=== PATIENT | female | born 1965 | race Caucasian/White ===

== ENCOUNTER 2022-11-07 07:34 | Outpatient (AMB) | payer BC, SELFPAY ==
[2022-11-07 07:36] VITALS: BP 122/76; PULSE 78; O2SAT 98; BMI 26.3
--- NOTE | 2022-11-07 07:36 | MHC.PC.OV ---
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 Patient moved from [place] where she lived for 20 years to be closer to her mother suffering from dementia. 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 1. Little interest or pleasure in doing things: not at all 2. Feeling down, depressed, or hopeless: not at all 3. Trouble falling or staying asleep, or sleeping too much: not at all 4. Feeling tired or having little energy: not at all 5. Poor appetite or overeating: not at all 6. Feeling bad about yourself - or that you are a failure or have let yourself or your family down: not at all 7. Trouble concentrating on things, such as reading the newspaper or watching television: not at all 8. Moving or speaking so slowly that other people could have noticed. Or the opposite - being so fidgety or restless that you have been moving around a lot more than usual: not at all 9. Thoughts that you would be better off or of hurting yourself in some way: not at all Total score: 0 Depression Screening Interpretation: Negative Source: Developed by Drs. Bebo Matos, Aylin Andrade, Freddy Ovalle and colleagues, with an educational rex from [employer]. Thrive Questionnaire Date Thrive assessed: 11/07/22 I am a: Patient What is your living situation today?: I have a steady place to live Within the past 12 months, did the food you bought not last and you didn't have the money to get more?: Never true Within the past 12 months, did you worry whether your food would run out before you got money to buy more?: Never true Do you have trouble paying for medicines?: No Do you have trouble getting transportation to medical appointments?: No Do you have trouble paying your heating and electricity bill?: No Do you have trouble taking care of your child, family member or friend?: No Do you have trouble with day-to-day activities such as bathing, preparing meals, shopping, managing finances, etc.?: No Are you currently unemployed and looking for a job?: No Are you interested in more education?: No Please select the resources that you would like help with: None Currently or been in a relationship where the following occur: no concerns reported AUDIT C Alcohol Use Questionnaire (AUDIT-C) 1. How often do you have a drink containing alcohol?: Never 3. How often do you have six or more drinks on one occasion?: Never Total Score: 0 LILLIAM-7 AMB Questionnaire LILLIAM-7 Date LILLIAM - 7 assessed: 11/07/22 Feeling nervous, anxious, or on edge: 0 = Not at all Not being able to stop or control worryin = Not at all Worrying too much about different things: 0 = Not at all Trouble relaxin = Not at all Being so restless that it is hard to sit still: 0 = Not at all Becoming easily annoyed or irritable: 0 = Not at all Feeling afraid as if something awful might happen: 0 = Not at all Total LILLIAM-7 score (0-4 normal; 5-9 mild; 10-14 moderate; 15-21 severe): 0 Source: Developed by Drs. Bebo Matos, Aylin Andrade, Freddy Ovalle and colleagues, with an educational rex from [employer]. Review of Systems Const All systems reviewed & are unremarkable except as noted in HPI and below Reports no additional complaints Eyes Reports no additional complaints ENT Reports no additional complaints Card Reports no additional complaints Resp Reports no additional complaints GI Reports no additional complaints Reports no additional complaints Physical exam (Primary Care) Vital Signs: Last Vital Signs Pulse 78 11/07/22 07:36 BP 122/76 11/07/22 07:36 Pulse Ox 98 11/07/22 07:36 Oxygen Delivery Method Room Air 11/07/22 07:36 BMI result Body Mass Index 26.3 Tobacco/Smoking Status: Tobacco use Status Tobacco use date assessed 11/07/22 11/07/22 07:44 Patient Tobacco Use Status Former Tobacco user (11/07/22 07:44 years ago) e-Cigarette/Vaping Use Never Used 11/07/22 07:44 Depression Screening Interpretation: Negative Currently or been in a relationship where the following occur: no concerns reported Const General: no acute distress HENMT Head: Yes normal to inspection Ears: hearing grossly normal bilaterally Face and sinus: Yes normal facial exam Mouth: Normal oral and palatal mucosa present Eyes General: appearance normal, both eyes and all related structures Neck Neck: Yes no lymphadenopathy and Yes supple Resp Effort & Inspection: normal respiratory effort Auscultation: clear to auscultation bilaterally Cardio Rhythm: regular rhythm Heart sounds: S1 normal heart sound present and S2 normal heart sound present GI Inspection: Yes normal to inspection Palpation (GI): Soft to palpation Percussion: Yes normal to percussion Auscultation: normal bowel sounds Assessment and Plan Assessment & Plan (1) Ovarian cyst: Comment: History of ovarian cysts Code(s): N83.209 - Unspecified ovarian cyst, unspecified side Plan: Patient will be referred to word processor for pelvic exam and follow-up on ovarian cysts (2) Annual physical exam: Code(s): Z00.00 - Encounter for general adult medical examination without abnormal findings Plan: Well-balanced diet regular exercise discussed with the patient. She will return for fasting blood work. Screening mammogram will be ordered. Patient will be referred to orthopedic brace maker for colonoscopy (3) Breast implant in situ: Comment: surjit 2002, Code(s): Z98.82 - Breast implant status Plan: Check mammogram Orders: Orders MM tomosynthesis screen imp BI Today Z12.31 - Encounter for screening mammogram for malignant neoplasm of breast Comprehensive [place]. Panel Fast Today Z00.00 - Encounter for general adult medical examination without abnormal findings Lipid Panel Today Z00.00 - Encounter for general adult medical examination without abnormal findings TSH reflex Free T4 Today Z00.00 - Encounter for general adult medical examination without abnormal findings Vitamin D 25-OH Total Today Z00.00 - Encounter for general adult medical examination without abnormal findings Complete Blood Count Auto Diff Today Z00.00 - Encounter for general adult medical examination without abnormal findings UA w Microscopic Today Z00.00 - Encounter for general adult medical examination without abnormal findings Referrals Gastroenterology Referral Z00.00 - Encounter for general adult medical examination without abnormal findings Medications: New gdthpgetlv-fup-krscb-menth-euc 8 % apply to affected toenails topically QD; 34.6 mL 1RF Coding Level of Care Code New Pt Prev Care 40-64y(88009) Diagnoses Ovarian cyst N83.209 Annual physical exam Z00.00 Breast implant in situ Z98.82
== END 2022-11-07 08:33 | disposition home or self-care (01) ==
PROVIDERS: Visit Provider Internal Medicine
DX: Z00.00 Encounter for general adult medical examination without abnormal findings (principal); Z98.82 Breast implant status
CPT/HCPCS: 99386

== ENCOUNTER 2022-11-22 09:23 | Outpatient (REF) | payer BC, SELFPAY ==
[2022-11-22 11:16] LABS: Appearance Urine Clear; Color Urine Yellow; Glucose Urine UA Negative (Negative); Leukocyte Esterase Urine Small (1+) (Negative); MANUAL DIFF FLAG NO; Nitrite Urine Negative (Negative); PH 5.5 (5.0-9.0); UMIC TRIGGER UA YES; Urine Blood Negative (Negative); Urine Ketones Negative (Negative); Urine Protein Negative (Neg-Trace)
[2022-11-22 11:19] LABS: Bacteria Urine 1+ (None Seen); Hyaline Casts Urine 0-2 /LPF (0-2); RBC Urine 0-2 /HPF (0-2)
[2022-11-22 11:35] LABS: Basophils Percent Auto 0.7 % (0-2); Eosinophils Absolute Auto 0.1 X10*3/uL (0.0-0.4); Eosinophils Percent Auto 2.6 % (0-4); Hemoglobin 13.8 g/dl (12.0-16.0); Imm Gran Abs Auto 0.01 X10*3/uL (0.00-0.03); Imm Gran Pct Auto 0.2 % (0.0-0.4); Lymphocytes Absolute Auto 1.2 X10*3/uL (1.2-4.9); Lymphocytes Percent Auto 28.8 % (20-40); Mean Corpuscular HGB Conc 32.9 g/dl (31.0-35.0); Mean Corpuscular Hemoglobin 28.5 pg (27.0-33.0); Mean Corpuscular Volume 86.6 fL (80.0-98.0); Mean Platelet Volume 10.6 fL (9.4-12.3); Monocytes Absolute Auto 0.4 X10*3/uL (0.1-1.2); Monocytes Percent Auto 8.8 % (2-11); Neutrophils Absolute Auto 2.5 x10*3/uL (2.0-8.3); Neutrophils Percent Auto 58.9 % (45-73); Platelet Count 263 X10*3/uL (160-400); Red Blood Count 4.85 X10*6/uL (4.20-5.50); Red Cell Distribution Width 13.2 % (11.0-16.0); White Blood Count 4.3 X10*3/uL (4.8-10.8)
[2022-11-22 12:11] LABS: Alanine Aminotransferase 14 U/L (0-31); Alkaline Phosphatase 77 U/L (39-117); Anion Gap 11 (12-20); Aspartate Amino Transferase 16 U/L (5-31); Bilirubin Total 0.9 mg/dL (0.0-1.0); Blood Urea Nitrogen 17 mg/dL (9-16); Calcium 9.3 mg/dL (8.4-10.2); Carbon Dioxide 25 mmol/L (22-29); Chloride 109 mmol/L (96-108); Cholesterol 240 mg/dL; Estimated Glomerular Filt Rate > 60; Glucose Fasting 89 mg/dL (60-99); HDL Cholesterol 65 mg/dL; LDL Cholesterol Calculated 162 mg/dl; Potassium 3.9 mmol/L (3.3-5.1); Sodium 141 mmol/L (135-145); Total Protein 7.2 g/dL (6.5-8.0); Triglycerides 69 mg/dL
[2022-11-22 12:30] LABS: TSH reflex Free T4 0.99 uIU/mL (0.32-4.0); Vitamin D 25-OH Total 48.8 ng/mL (>30)
== END 2022-11-22 09:24 | disposition home or self-care (01) ==
LOC: HO.HMGCLDS 09:23
PROVIDERS: PCP Internal Medicine; Visit Provider Internal Medicine
DX: Z00.00 Encounter for general adult medical examination without abnormal findings (principal); Z20.2 Contact with and (suspected) exposure to infections with a predominantly sexual mode of transmission
CPT/HCPCS: 36415; 80053; 80061; 81001; 82306; 84443; 85025

== ENCOUNTER 2022-11-25 10:14 | Outpatient (REF) | payer BC, SELFPAY ==
[2022-11-25 13:39] LABS: Appearance Urine Clear; Color Urine Yellow; Glucose Urine UA Negative (Negative); Leukocyte Esterase Urine Trace (Negative); Nitrite Urine Negative (Negative); Specific Gravity - Urine 1.015 (1.005-1.025); UMIC TRIGGER UA YES; Urine Blood Negative (Negative); Urine Ketones Negative (Negative); Urine Protein Negative (Neg-Trace)
[2022-11-25 13:42] LABS: Bacteria Urine None Seen (None Seen); Hyaline Casts Urine 0-2 /LPF (0-2); RBC Urine 0-2 /HPF (0-2); WBC Urine 0-5 /HPF (0-5)
== END 2022-11-25 10:15 | disposition home or self-care (01) ==
LOC: HO.HMGCLDS 10:14
PROVIDERS: PCP Internal Medicine; Visit Provider Internal Medicine
DX: R30.0 Dysuria (principal)
CPT/HCPCS: 81001; 87086

== ENCOUNTER 2022-12-08 12:00 | Outpatient (REF) | payer BC, SELFPAY ==
--- NOTE | ~2022-12-08 | MM_ITS ---
EXAMINATION: MM SCREENING DIGITAL BREAST TOMOSYNTHESIS, BILATERAL CLINICAL INFORMATION: Screening. Asymptomatic. COMPARISON: Mammography: This is a baseline study. TECHNIQUE: Digital mammography is performed in craniocaudal and mediolateral oblique views along with computer-aided detection (CAD). Digital breast tomosynthesis is performed in implant-displaced craniocaudal and implant-displaced mediolateral oblique views along with computer-aided detection (CAD). Synthesized 2D images are generated from the tomosynthesis. FINDINGS: There are scattered areas of fibroglandular density (ACR BI-RADS breast composition Category b). There are no significant masses, abnormal calcifications, or other abnormalities. MM/MM tomosynthesis screen imp BI IMPRESSION: There are no significant changes from prior study. ASSESSMENT: BI-RADS BI-RADS 1 - Negative RECOMMENDATION: Routine annual mammography screening. 1 year F/U This patient's information was entered into a reminder system with a target due date for their next mammogram.
== END 2022-12-08 12:01 | disposition home or self-care (01) ==
LOC: HO.MAMMO 12:00
PROVIDERS: PCP Internal Medicine; Visit Provider Internal Medicine
DX: Z12.31 Encounter for screening mammogram for malignant neoplasm of breast (principal)
CPT/HCPCS: 77063; 77067

== ENCOUNTER → 2022-12-08 12:02 | Outpatient (BNV) | payer BC, SELFPAY | PROVIDERS: PCP Internal Medicine; Visit Provider Radiology Diagnostic Radiology | DX: Z12.31 Encounter for screening mammogram for malignant neoplasm of breast (principal) | CPT/HCPCS: 77063; 77067 ==

== ENCOUNTER 2023-01-19 09:13 | Outpatient (AMB) | payer BC, SELFPAY ==
--- NOTE | 2023-01-19 09:16 | MHC.OFFVIS ---
Intake Vital Signs 01/19/23 09:18 Height 5 ft 2 in Weight 140 lb BMI 25.6 BP 149/90 H Blood Pressure Location Lt brachial Position Sitting Pulse 71 Intake Visit Reasons: [place] screening Intake Note: Patient new consult for Pre Colonoscopy screening. Patient cc: RLQ pain, and denies any other GI issues. 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 She is referred by Brittny Roach of [facility] primary care. PMX Asthma High cholesterol History of ovarian cyst Pelvic pain Line lower back pain * SURGICAL HISTORY Saline breast implant * ALLERGIES: NKDA * Green Phosph[employer] LABS: Laboratory Tests 11/22/22 09:28 WBC 4.3 L Hgb 13.8 Hct 42.0 Plt Count 263 Estimated GFR > 60 Total Bilirubin 0.9 AST 16 ALT 14 Alkaline Phosphata se 77 TSH 0.99 TODAY'S VISIT This is her first colonoscopy. She has occasional CIC controlled with am coffee. No upper GI problems. She has trouble coming out of anesthesia in the past I want to fight. She denies any cardiac or respiratory problems. NO Id problems. Her brother at age 52 of CRC. 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 Patient Tobacco Use Status: Former Tobacco user (20 years ago) e-Cigarette/Vaping Use: Never Used Current occupational status: employed Cognitive needs: No Hearing needs: No Vision needs: Yes Review of Systems Const Denies fatigue, Denies fever(s), Denies night sweats, Denies poor appetite and Denies weight loss ENT Reports Normal hearing present, Denies dental pain, Denies dysphagia, Denies hearing loss, Denies mouth pain, Denies odynophagia, Denies throat swelling, Denies tongue swelling and Reports other (Dentition adequate) Card Reports no additional complaints Resp Reports no additional complaints GI Denies abdominal pain, Denies melena, Denies bloating, Denies hematochezia, Reports constipation, Denies GI cramping, Denies dysphagia, Denies excessive flatus, Denies early satiety, Denies heartburn, Denies diarrhea, Denies nausea, Denies odynophagia, Denies vomiting and Denies hematemesis Skin/Breast Denies pruritus, Denies lesions, Denies rash and Denies jaundice Neuro Reports Normal hearing present and Denies Abnormal speech present Endo Denies fatigue Aller/Immun Denies throat swelling and Denies tongue swelling Physical Exam Vital Signs: Last Vital Signs Pulse 71 01/19/23 09:18 BP 149/90 H 01/19/23 09:18 BMI result Body Mass Index 25.6 Const General: cooperative, no acute distress, well developed and well groomed Nutritional Appearance: well nourished and overweight Orientation/consciousness: oriented to person, oriented to place and oriented to time Limitations: No language barrier HEENT Head: Yes normocephalic and Yes atraumatic Eyes General: appearance normal, both eyes and all related structures Pupils: Equal, round and reactive pupils present Neck Neck: Yes normal visual inspection and Yes no lymphadenopathy Thyroid: Thyroid normal Resp Effort & Inspection: normal respiratory effort and able to speak in complete sentences Auscultation: clear to auscultation bilaterally Cardio Rate: regular rate Rhythm: regular rhythm Heart sounds: Normal, physiologic split S2 sound present Peripheral pulses: radial pulses present and posterior tibial pulses present GI Inspection: No distended, No Abdominal panniculus present and Yes obesity Palpation (GI): Soft to palpation, nontender, no guarding, not rigid and No hepatosplenomegaly present Percussion: Yes normal to percussion Auscultation: normal bowel sounds Rectal Exam - Female: deferred Skin General skin exam: no rashes or lesions noted, turgor normal, skin not dry, no jaundice, No spider nevi and no striae Rashes: no rashes Nails: normal Neuro General: oriented to person, oriented to place and oriented to time Cranial nerves: Yes Equal, round and reactive pupils present and Yes Normal hearing present Speech: No Abnormal speech present Extrem General: Yes normal to inspection, No clubbing, No cyanosis and No edema Psych Appearance: grossly normal and well kempt Mental Status: mental status grossly normal Speech and movement: Normal speech and movement present Affect: normal affect Attitude: cooperative Thought process: Normal thought process present and not confabulating Thought content: Normal thought content present Insight: Fair insight present (Psych) Judgement: Fair judgement present (Psych) Assessment & Plan Assessment & Plan (1) Family history of colon cancer: Comment: Brother age 52 Code(s): Z80.0 - Family history of malignant neoplasm of digestive organs Plan: This is her first colonoscopy. She has occasional CIC controlled with am coffee. No upper GI problems. She has trouble coming out of anesthesia in the past I want to fight. She denies any cardiac or respiratory problems. NO Id problems. Her brother at age 52 of CRC. (2) Pre-op examination: Code(s): Z01.818 - Encounter for other preprocedural examination Coding Level of Care Code New Pt Level 3 (16854) Diagnoses Family history of colon cancer Z80.0 Pre-op examination Z01.818
[2023-01-19 09:18] VITALS: BP 149/90; PULSE 71; BMI 25.6
== END 2023-01-19 09:52 | disposition home or self-care (01) ==
PROVIDERS: PCP Internal Medicine; Visit Provider Nurse Practitioner
DX: Z80.0 Family history of malignant neoplasm of digestive organs (principal); Z01.818 Encounter for other preprocedural examination
CPT/HCPCS: 99203

== ENCOUNTER → 2023-01-19 09:13 | Outpatient (BNVA) | payer BC, SELFPAY | PROVIDERS: PCP Internal Medicine; Visit Provider Nurse Practitioner ==

== ENCOUNTER 2023-01-26 12:51 | Outpatient (REF) | payer BC, SELFPAY ==
--- NOTE | ~2023-01-26 | US_ITS ---
EXAMINATION: US PELVIS CLINICAL INFORMATION: Pelvic and perineal pain. The patient reports LMP 5+ years ago. COMPARISON: None available. TECHNIQUE: Ultrasound of the pelvis is performed using both transabdominal and transvaginal transducers along with Doppler. Transvaginal imaging is performed due to inadequate visualization transabdominally. FINDINGS: Uterus: The uterus is anteverted and measures 7.1 x 1.7 x 3.0 cm. The double wall endometrial thickness is 6 mm. The uterus is smooth in contour and has normal myometrial echogenicity. No visible fibroid. Adnexa: The right ovary is enlarged measuring 8.6 x 6.9 x 7.1 cm, volume 220 mL. Cyst in the right ovary measures 8.4 x 6.5 x 6.8 cm. The cyst appears simple on the transvaginal imaging. The left ovary measures 3.3 x 1.5 x 2.4 cm, volume 6 mL. The left ovary appears normal. US/US pelvic and transvaginal IMPRESSION: 8.4 cm cyst in the right ovary. In a postmenopausal patient this is concerning for low-grade cystic neoplasm. Recommend either gynecology consult and follow-up US in 3-6 months, or MR with IV contrast for improved characterization.
== END 2023-01-26 12:52 | disposition home or self-care (01) ==
LOC: HO.HMGCX 12:51
PROVIDERS: PCP Internal Medicine; Visit Provider Internal Medicine
DX: R10.2 Pelvic and perineal pain (principal); N83.209 Unspecified ovarian cyst, unspecified side
CPT/HCPCS: 76830; 76856

== ENCOUNTER 2023-04-17 10:54 | Day surgery (SDC) | payer OTHER, SELFPAY ==
[2023-04-12 16:18] VITALS: BMI 25.6
[2023-04-12 16:40] VITALS: BMI 25.6
--- NOTE | 2023-04-16 10:34 | HO.ANESPROP2 ---
Documented by User: Dora Dukes NP 04/16/23 10:35 HPI - Anesthesia Eval Consult details Narrative: 58yo F for Colonoscopy PMFSH Active Problems Active Problems: All Active Problems (Updated 04/12/23 @ 15:51 by Tressa Sumner, SHAKIRA) Pre-op examination (Acute) Family history of colon cancer (Acute) Pelvic pain (Acute) Hyperlipidemia (Acute) Dysuria (Acute) Lower back pain (Acute) Breast implant in situ (Acute) Annual physical exam (Acute) Ovarian cyst (Acute) UTI (urinary tract infection) (Acute) Past Medical History Medical History Pelvic pain Lower back pain Hx of ovarian cyst High cholesterol Asthma Family History Family History Mother Dementia Mental health disorder Brother Colon cancer Substance use disorder Father Hypertension Brother Substance use disorder Surgical History Surgical History Hx of exploratory laparotomy Hx of bilateral breast implants Hx of hand surgery Social History Social History Household Members 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 If so, by whom?: No Are you DNR?: No Advance Directives: No Advance Directives Information Provided: Yes Advance Directives on File: No Recently lost weight without trying: No Nutrition Risks: No Nutritional Risk Current occupational status: employed Cognitive needs: No Hearing needs: No Vision needs: Yes Meds Allergies Allergy/AdvReac Type Severity Reaction Status Date / Time latex Allergy Rash Verified 04/17/23 11:06 Home Medications Medication Instructions Recorded Confirmed Last Taken Type albuterol sulfate 90 mcg/actuation inhalation 04/12/23 04/12/23 03/27/23 History aerosol inhaler Exam Height,Weight and Vital Signs: Height 5 ft 2 in Weight 63.503 kg Pertinent Lab Results Pertinent Lab Results: Laboratory Tests 11/22/22 09:28 WBC 4.3 L Hgb 13.8 Hct 42.0 Plt Count 263 Sodium 141 Potassium 3.9 Chloride 109 H Carbon Dioxide 25 BUN 17 H Creatinine 0.74 Assessment and Plan Assessment Anesthesia Assessment: Chart Reviewed Documented by User: Eric Parker MD 04/17/23 12:56 PMFSH Past Medical History Medical History Pelvic pain Lower back pain Hx of ovarian cyst High cholesterol Asthma Family History Family History Mother Dementia Mental health disorder Brother Colon cancer Substance use disorder Father Hypertension Brother Substance use disorder Family history of problems with anesthesia: No Surgical History Surgical History Hx of exploratory laparotomy Hx of bilateral breast implants Hx of hand surgery History of Problems with Anesthesia: No Social History Social History Household Members 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 If so, by whom?: No Are you DNR?: No Advance Directives: No Advance Directives Information Provided: Yes Advance Directives on File: No Recently lost weight without trying: No Nutrition Risks: No Nutritional Risk Current occupational status: employed Cognitive needs: No Hearing needs: No Vision needs: Yes Meds Allergies Allergy/AdvReac Type Severity Reaction Status Date / Time latex Allergy Rash Verified 04/17/23 11:06 Home Medications Medication Instructions Recorded Confirmed Last Taken Type albuterol sulfate 90 mcg/actuation inhalation 04/12/23 04/12/23 03/27/23 History aerosol inhaler Exam Airway Mallampati Class: I TM Dist: >3cm Neck ROM: Full Loose/Missing/Broken Teeth: Yes (top front) Assessment and Plan Assessment Anesthesia Assessment: Anesthesia Plan Discussed Final Anesthetic Review Family History of Problems with Anesthesia: No History of Problems with Anesthesia: No NPO: Yes ASA Class: II Final Preanesthetic Review: No Changes in Pt Med Stat, Meds/Allgs Chart Reviewed, Consent Obtained/Reviewed and Anes Risks/Benef Reviewed Patient Risk: Low Procedure Risk: Low Anesthetic Plan Anesthetic Plan: MAC: Disposition: Standard PACU
[2023-04-17 11:20] VITALS: BP 116/82; PULSE 82; RESP 16; TEMP 36.4; O2SAT 98
--- NOTE | 2023-04-17 11:22 | MHC.SHP ---
Pre-Procedural Eval Section A Date of Service: 04/17/23 The patient is an INPATIENT: No The History & Physical has been completed within 30 days and I have reviewed it.: No Section B Chief Complaint: Screening, family history of colon cancer Relevant Family History (Specify if Yes): Yes Relevant Social History: Tobacco Use (Former smoker) Present Medications: see Short Stay Collaborative assessment Medical History: Significant History (Hyperlipidemia, asthma, ovarian cyst) History of Previous Operations: Relevant previous surgery/procedure and date(s) (Hx of hand surgery) Allergies: Allergies Allergy/AdvReac Type Severity Reaction Status Date / Time latex Allergy Rash Verified 04/17/23 11:06 Review of Systems Sugical H&P ROS: Negative: Constitution, Cardiovascular, Respiratory and Gastrointestinal Exam Surgical H&P Exam: Normal: Heart, Normal: Lungs, Normal: Extremities and Normal: Abdomen Plan Diagnosis/Plan: Unchanged I have reviewed the history and physical and performed a pertinent physical examination on my patient. No changes have occurred unless specified. Time Spent With Patient Time: Total time managing care of this patient today ____ minutes.
[2023-04-17] MEDS: Lactated Ringers 1,000 ML 100 ML IVCONT (11:23)
--- NOTE | 2023-04-17 12:36 | W.PM.OPN ---
Operative Note Operative Note Date of Service: 04/17/23 Narrative: COLONOSCOPY TILL CECUM Pre-op diagnosis: Colon cancer screening, family history of colon polyps (brother at age 52 yrs) Post-op diagnosis:? Diverticulosis, hemorrhoids Endoscopist:? Cayden Loza MD Anesthesia:?MAC Consent: Indications for the procedure and potential complications of bleeding, perforation, reaction to medications and missed diagnosis were discussed with the patient and informed consent was obtained. Instrument: Olympus PCF H 190 L variable stiffness pediatric colonoscope Monitoring: Vital signs and clinical assessment, intermittent blood pressure monitoring, continuous EKG monitoring, Pulse oximetry and Carbon Dioxide monitoring were done throughout the procedure. Please see anesthesia flowsheet. Colon withdrawl time was 13 minutes. Procedure: The patient was placed in the left lateral decubitis position and pre-procedure medications were administered. After a digital rectal examination of the ano-rectum, the video colonoscope was inserted into the rectum and advanced through the colon to the cecum. The colonoscope was slowly withdrawn in a retrograde panoramic fashion and the colon mucosa was carefully examined including a retroflexed view of the rectum. Findings and interventions are described below. Procedure Difficulty: Severe diverticulosis with narrowing in the sigmoid colon at 30 cms which was navigated with some difficulty Findings: Terminal Ileum: Not evaluated Cecum: Normal Ascending Colon: Normal Transverse Colon: Normal Descending Colon: Moderate diverticulosis Sigmoid Colon: Severe diverticulosis with luminal narrowing Rectum: Normal Ano-rectum: Moderate internal hemorrhoids Colon preparation: Excellent Impression and Post Procedure Diagnosis: Colonoscopy Findings: No polyps were detected Moderate to severe diverticulosis seen in the left colon Moderate hemorrhoids on retroflexed exam. Plan: Patient has an appointment on 05/01/23 in the GI [facility] with Sasha Mari NP . Repeat Colonoscopy in 5 years due to positive family history. Above findings were reviewed with the patient and diverticulosis handouts was given in the discharge area
[2023-04-17 13:17] VITALS: BP 84/48; PULSE 81; RESP 12; TEMP 36.3; O2SAT 95
[2023-04-17 13:32] VITALS: BP 108/76; PULSE 79; RESP 16; O2SAT 95
[2023-04-17 13:44] VITALS: BP 104/74; PULSE 80; RESP 16; TEMP 36.3; O2SAT 96
== END 2023-04-17 14:25 | disposition home or self-care (01) ==
PROVIDERS: PCP Internal Medicine; Visit Provider Internal Medicine Gastroenterology
PROC: 0DJD8ZZ Inspection of Lower Intestinal Tract, Via Natural or Artificial Opening Endoscopic (ICD-10-PCS; CPT 45378; principal; 2023-04-17 12:00)
DX: Z12.11 Encounter for screening for malignant neoplasm of colon (principal); Z80.0 Family history of malignant neoplasm of digestive organs; K57.30 Diverticulosis of large intestine without perforation or abscess without bleeding; K64.8 Other hemorrhoids; E78.00 Pure hypercholesterolemia, unspecified; J45.909 Unspecified asthma, uncomplicated; M54.50 Low back pain, unspecified; Z79.899 Other long term (current) drug therapy; Z91.040 Latex allergy status; Z98.890 Other specified postprocedural states; Z87.891 Personal history of nicotine dependence
CPT/HCPCS: 45378; J2704; J3010

== ENCOUNTER → 2023-04-17 10:54 | Outpatient (BNV) | payer OTHER, SELFPAY | PROVIDERS: PCP Internal Medicine; Visit Provider Internal Medicine Gastroenterology | DX: Z12.11 Encounter for screening for malignant neoplasm of colon (principal); Z80.0 Family history of malignant neoplasm of digestive organs; K57.30 Diverticulosis of large intestine without perforation or abscess without bleeding; K64.8 Other hemorrhoids | CPT/HCPCS: 45378 ==

== ENCOUNTER 2023-04-27 14:07 | Outpatient (AMB) | payer OTHER, SELFPAY ==
--- NOTE | 2023-04-27 14:32 | AM.OFFWIN_ITS ---
Intake Vital Signs 04/27/23 14:35 Height 5 ft 2 in Weight 150 lb BMI 27.4 BP 122/72 Blood Pressure Location Lt brachial Position Sitting Pulse 80 Pulse Source Pulse Oximeter Temp 98.0 F Temp Source Temporal Artery Scan Pulse Oximetry (%) 98 Oxygen Delivery Method Room Air Intake Visit Reasons: EP sinus infection masked in lobby Intake Note: pt is here today for sinus infection started 2 weeks ago Patient Tobacco Use Status: Former Tobacco user Quit Date: Allergies latex Allergy (Verified 04/27/23 14:33) Rash Do you need a note to return to daycare/school/sports/work: Yes HPI HPI Comments History of Present Illness Details Pt is a 58yo F who presents with concern sinus infection Ongoing x 2 eeks Facial pressure, congestion, post nasal drip No fever or chills Slight cough without CP or SOB Denies dizziness or lightheadedness + slight ear fullness without pain No ST Only taking hydration. 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 Are you a primary group care worker to a significant other at home: Yes (grandmother) Do you presently have visiting nurse or other home services: No Patient Tobacco Use Status: Former Tobacco user Quit Date: Tobacco use type: Cigarette e-Cigarette/Vaping Use: Never Used Current occupational status: employed Cognitive needs: No Hearing needs: No Vision needs: Yes Review of Systems Const Denies body aches, Denies chills, Denies fatigue, Denies fever(s) and Reports headache(s) (sinus) Eyes Denies blind spots and Denies blurry vision ENT Denies dizziness, Denies otalgia, Reports headache(s) (sinus), Reports nasal congestion, Reports sinus pain, Reports sinus pressure and Denies sore throat Card Denies chest pain and Denies dyspnea Resp Denies chest congestion, Reports cough and Denies dyspnea Musc Denies myalgias Neuro Denies dizziness and Reports headache(s) (sinus) Endo Denies fatigue Physical Exam Vital Signs: Last Vital Signs Temp 98.0 F 04/27/23 14:35 Pulse 80 04/27/23 14:35 BP 122/72 04/27/23 14:35 Pulse Ox 98 04/27/23 14:35 Oxygen Delivery Method Room Air 04/27/23 14:35 BMI result Body Mass Index 27.4 General: Non-toxic, NAD. Speaking full sentences. Skin: Warm dry throughout Eye: EOMI HENT: Airway patent. Uvula midline. No pharyngeal erythema or edema. 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 Bilateral canals clear. + fluid behind R TM. L TM erythematous without bulging. No TM perforation or hemotympanum noted. + sinus tenderness to palpation bilaterally frontal and maxillary Respiratory: CTA bilaterally. No wheezes, rales or rhonchi Cardiac: RRR. No murmur MSK: Full ROM extremities. Neurology: A/O. No aphasia or facial droop. Gait without abnormality Psych: Good mood and affect Assessment & Plan Assessment & Plan (1) Sinusitis: Code(s): J32.9 - Chronic sinusitis, unspecified Qualifiers: Sinusitis location: frontal Chronicity: acute Recurrence: non- recurrent Qualified Code(s): J01.10 - Acute frontal sinusitis, unspecified Plan: Patient seen and evaluated. No OM or OE on exam Lungs CTA Augmentin with food; avoid alcohol F/U with PCP ER protocol discussed like CP, SOB or dizziness Patient gave verbal understanding and had no additional questions or concerns at time of discharge All questions answered Medications: New amoxicillin-pot clavulanate 875-125 mg 1 tab PO BID 14 tabs 0RF J32.9 - Chronic sinusitis, unspecified Coding Level of Care Code Est Pt Level 3 (77062) Diagnoses Acute non-recurrent frontal sinusitis J01.10 Sinusitis location: frontal Chronicity: acute Recurrence: non-recurrent
[2023-04-27 14:35] VITALS: BP 122/72; PULSE 80; TEMP 36.7; O2SAT 98; BMI 27.4
== END 2023-04-27 15:37 | disposition home or self-care (01) ==
PROVIDERS: PCP Internal Medicine; Visit Provider Physician Assistant
DX: J01.10 Acute frontal sinusitis, unspecified (principal)
CPT/HCPCS: 99213

== ENCOUNTER 2023-05-25 11:33 | Outpatient (AMB) | payer OTHER, SELFPAY ==
--- NOTE | 2023-05-25 11:35 | MHC.OFFVIS ---
Intake Vital Signs 05/25/23 11:36 Height 5 ft 2 in Weight 143 lb 4.807 oz BMI 26.2 BP 139/76 Blood Pressure Location Lt brachial Position Sitting Pulse 87 Intake Visit Reasons: S/P Colon Intake Note: Marysol presents in the office as a follow up colonoscopy. CC: She states that she is just here for results. Her digestive system has finally gone back to normal. She was still having diarrhea for a month after her procedure. Allergies latex Allergy (Verified 05/25/23 11:37) Rash HPI S/P Colon HPI Details Assessment & Plan (1) Family history of colon cancer: Comment: Brother age 52 Code(s): Z80.0 - Family history of malignant neoplasm of digestive organs Plan: This is her first colonoscopy. She has occasional CIC controlled with am coffee. No upper GI problems. She has trouble coming out of anesthesia in the past I want to fight. She denies any cardiac or respiratory problems. NO Id problems. Her brother at age 52 of CRC. (2) Pre-op examination: Code(s): Z01.818 - Encounter for other preprocedural examination COLONOSCOPY 04/17/23 Findings: Terminal Ileum: Not evaluated Cecum: Normal Ascending Colon: Normal Transverse Colon: Normal Descending Colon: Moderate diverticulosis Sigmoid Colon: Severe diverticulosis with luminal narrowing Rectum: Normal Ano-rectum: Moderate internal hemorrhoids Colon preparation: Excellent Impression and Post Procedure Diagnosis: Colonoscopy Findings: No polyps were detected Moderate to severe diverticulosis seen in the left colon Moderate hemorrhoids on retroflexed exam. Plan: Patient has an appointment on 05/01/23 in the [facility] with Sasha Mari NP . Repeat Colonoscopy in 5 years due to positive family history. TODAY'S VISIT She is agreeable to 5 year repeat. The procedure was well tolerated. The results were explained and the patient is agreeable to the follow-up interval as stated. Education was provided to tell any 1st degree relatives about their findings to be sure that they are screened by age 45. Educated that they will be put on a recall list when it is time for their repeat scope but should they move out of state or away from the hospital they will need to remember along with their primary to repeat the procedure in a timely fashion to avoid any adverse complications. She says of the whole experience was terrible. The anesthesia burned her arm when it was injected, I wanted to scream. She developed severe diarrhea right after the procedure which persisted for a month. She called the office, but the message went to Dr. Loza and she was only given Imodium, which bloated her. She also developed dizziness and had a sinus infection that required abx. She and I today discuss probioitics and fiber. She mentions that she gets pain in the right lower quadrant when she eats ice cream. This tends to happen at night. We discuss possible lactose intolerance. She is agreeable to trying frozen yogurt and or using [id number] Lactaid tablets. I offer her follow-up visits with me to be sure her bowels continue to be normal but she feels that now that she is increased the fiber in her diet this has normalized her bowels and resolved her constipation without having to drink coffee mornings. I tell her to please feel free to contact me if she needs my services in the future and I will work to make sure she does not have a repeat of her bad experience in 5 years. 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 Are you a primary pulmonary care nurse to a significant other at home: Yes (grandmother) Do you presently have visiting nurse or other home services: No Patient Tobacco Use Status: Former Tobacco user Quit Date: Tobacco use type: Cigarette e-Cigarette/Vaping Use: Never Used Current occupational status: employed Cognitive needs: No Hearing needs: No Vision needs: Yes Review of Systems Const Denies fatigue, Denies fever(s), Denies night sweats, Denies poor appetite and Denies weight loss ENT Reports Normal hearing present, Denies dental pain, Denies dysphagia, Denies hearing loss, Denies mouth pain, Denies odynophagia, Denies throat swelling, Denies tongue swelling and Reports other (Dentition adequate) Card Reports no additional complaints Resp Reports no additional complaints GI Details: Denies abdominal pain, Denies melena, Denies bloating, Denies hematochezia, Reports constipation, Denies GI cramping, Denies dysphagia, Denies excessive flatus, Denies early satiety, Denies heartburn, Reports diarrhea, Denies nausea, Denies odynophagia, Denies vomiting and Denies hematemesis Skin/Breast Denies pruritus, Denies lesions, Denies rash and Denies jaundice Neuro Reports Normal hearing present and Denies Abnormal speech present Endo Denies fatigue Aller/Immun Denies throat swelling and Denies tongue swelling Physical Exam Vital Signs: Last Vital Signs Pulse 87 05/25/23 11:36 BP 139/76 05/25/23 11:36 BMI result Body Mass Index 26.2 Const General: cooperative, no acute distress, well developed and well groomed Nutritional Appearance: average body habitus and well nourished Orientation/consciousness: oriented to person, oriented to place and oriented to time Limitations: No language barrier HEENT Head: Yes normocephalic and Yes atraumatic Eyes General: appearance normal, both eyes and all related structures Pupils: Equal, round and reactive pupils present Neck Neck: Yes normal visual inspection and Yes no lymphadenopathy Thyroid: Thyroid normal Resp Effort & Inspection: normal respiratory effort and able to speak in complete sentences Auscultation: clear to auscultation bilaterally Cardio Rate: regular rate Rhythm: regular rhythm Heart sounds: Normal, physiologic split S2 sound present Peripheral pulses: radial pulses present and posterior tibial pulses present GI Inspection: No distended and No Abdominal panniculus present Palpation (GI): Soft to palpation, nontender, no guarding, not rigid and No hepatosplenomegaly present Percussion: Yes normal to percussion Auscultation: normal bowel sounds Rectal Exam - Female: deferred Skin General skin exam: no rashes or lesions noted, turgor normal, skin not dry, no jaundice, No spider nevi and no striae Rashes: no rashes Nails: normal Neuro General: oriented to person, oriented to place and oriented to time Cranial nerves: Yes Equal, round and reactive pupils present and Yes Normal hearing present Speech: No Abnormal speech present Extrem General: Yes normal to inspection, No clubbing, No cyanosis and No edema Psych Appearance: grossly normal and well kempt Mental Status: mental status grossly normal Speech and movement: Normal speech and movement present Affect: normal affect Attitude: cooperative Thought process: Normal thought process present and not confabulating Thought content: Normal thought content present Insight: Good insight present (Psych) Judgement: Good judgement present (Psych) Results Reviewed Results Reviewed: COLONOSCOPY 04/17/23 Findings: Terminal Ileum: Not evaluated Cecum: Normal Ascending Colon: Normal Transverse Colon: Normal Descending Colon: Moderate diverticulosis Sigmoid Colon: Severe diverticulosis with luminal narrowing Rectum: Normal Ano-rectum: Moderate internal hemorrhoids Colon preparation: Excellent Impression and Post Procedure Diagnosis: Colonoscopy Findings: No polyps were detected Moderate to severe diverticulosis seen in the left colon Moderate hemorrhoids on retroflexed exam. Plan: Patient has an appointment on 05/01/23 in the GI Clinic with Sasha Mari NP . Repeat Colonoscopy in 5 years due to positive family history. Assessment & Plan Assessment & Plan (1) Family history of colon cancer: Comment: Brother age 52 Code(s): Z80.0 - Family history of malignant neoplasm of digestive organs (2) Sigmoid diverticulosis: Comment: With luminal narrowing discovered on 2023 colonoscopy-but does not correspond to assurance of any future diverticulitis aeb Code(s): K57.30 - Diverticulosis of large intestine without perforation or abscess without bleeding (3) Constipation: Code(s): K59.00 - Constipation, unspecified Plan She is agreeable to 5 year repeat. The procedure was well tolerated. The results were explained and the patient is agreeable to the follow-up interval as stated. Education was provided to tell any 1st degree relatives about their findings to be sure that they are screened by age 45. Educated that they will be put on a recall list when it is time for their repeat scope but should they move out of state or away from the hospital they will need to remember along with their primary to repeat the procedure in a timely fashion to avoid any adverse complications. She says of the whole experience was terrible. The anesthesia burned her arm when it was injected, I wanted to scream. She developed severe diarrhea right after the procedure which persisted for a month. She called the office, but the message went to Dr. Loza and she was only given Imodium, which bloated her. She also developed dizziness and had a sinus infection that required abx. She and I today discuss probioitics and fiber. She mentions that she gets pain in the right lower quadrant when she eats ice cream. This tends to happen at night. We discuss possible lactose intolerance. She is agreeable to trying frozen yogurt and or using [id number] Lactaid tablets. We also discussed the severe diverticulosis with luminal narrowing and I let her know that the amount of diverticula in the narrowing do not always correspond to whether not he will get diverticulitis. However we did discuss strategies for potentially avoiding it in terms of seeds/nuts although the science on this is mixed. It is really important that she try to keep from being constipated and keep her fiber high otherwise to try to prevent any infections or worsening diverticulosis. Certainly if she has symptoms she is always free to contact my office. I offer her follow-up visits with me to be sure her bowels continue to be normal but she feels that now that she is increased the fiber in her diet this has normalized her bowels and resolved her constipation without having to drink coffee mornings. I tell her to please feel free to contact me if she needs my services in the future and I will work to make sure she does not have a repeat of her bad experience in 5 years Coding Level of Care Code Est Pt Level 3 (64832) Diagnoses Family history of colon cancer Z80.0 Sigmoid diverticulosis K57.30 Constipation K59.00
[2023-05-25 11:36] VITALS: BP 139/76; PULSE 87; BMI 26.2
== END 2023-05-25 12:01 | disposition home or self-care (01) ==
PROVIDERS: PCP Internal Medicine; Referring Provider Internal Medicine; Visit Provider Nurse Practitioner
DX: Z80.0 Family history of malignant neoplasm of digestive organs (principal); K57.30 Diverticulosis of large intestine without perforation or abscess without bleeding; K59.00 Constipation, unspecified
CPT/HCPCS: 99213

== ENCOUNTER → 2023-05-25 11:33 | Outpatient (BNVA) | payer OTHER, SELFPAY | PROVIDERS: PCP Internal Medicine; Visit Provider Nurse Practitioner ==

== ENCOUNTER 2023-07-18 10:55 | Outpatient (AMB) | payer OTHER, SELFPAY ==
[2023-07-18 11:13] VITALS: BP 120/80; PULSE 83; TEMP 36.2; O2SAT 96; BMI 27.8
--- NOTE | 2023-07-18 11:13 | AM.OFFWIN_ITS ---
Intake Vital Signs 07/18/23 11:13 Height 5 ft 2 in Weight 152 lb BMI 27.8 BP 120/80 Blood Pressure Location Lt brachial Position Sitting Pulse 83 Pulse Source Pulse Oximeter Temp 97.1 F Temp Source Temporal Artery Scan Pulse Oximetry (%) 96 Oxygen Delivery Method Room Air Intake Visit Reasons: EP LT Foot pain Intake Note: pt is here today for lft foot pain started 4 weeks ago Patient Tobacco Use Status: Former Tobacco user Quit Date: Allergies latex Allergy (Verified 07/18/23 11:17) Rash Do you need a note to return to daycare/school/sports/work: Yes HPI EP LT Foot pain HPI Details 58-year-old female presents to the [facility] for a sick visit. A couple of weeks ago she was barefoot and stepped hard on an electrical plug. The foot has been hurting since. Pain on bearing weight on the left foot. 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 Are you a primary adult day care worker to a significant other at home: Yes (grandmother) Do you presently have visiting nurse or other home services: No Patient Tobacco Use Status: Former Tobacco user Quit Date: Tobacco use type: Cigarette e-Cigarette/Vaping Use: Never Used Current occupational status: employed Cognitive needs: No Hearing needs: No Vision needs: Yes Physical Exam Vital Signs: Last Vital Signs Temp 97.1 F 07/18/23 11:13 Pulse 83 07/18/23 11:13 BP 120/80 07/18/23 11:13 Pulse Ox 96 07/18/23 11:13 Oxygen Delivery Method Room Air 07/18/23 11:13 BMI result Body Mass Index 27.8 Extrem Other: Left foot: Tenderness over the calcaneal area. No visible swelling. Assessment & Plan Assessment & Plan (1) Plantar fasciitis of left foot: Code(s): M72.2 - Plantar fascial fibromatosis Plan: X-ray images personally reviewed by me. Patient was advised to keep the foot elevated. Anti-inflammatories called in. Crutches provided to help in weight bearing. 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
== END 2023-07-18 12:08 | disposition home or self-care (01) ==
PROVIDERS: PCP Internal Medicine; Visit Provider Internal Medicine
DX: M72.2 Plantar fascial fibromatosis (principal)
CPT/HCPCS: 99214

== ENCOUNTER 2023-07-18 11:38 | Outpatient (REF) | payer OTHER, SELFPAY ==
--- NOTE | ~2023-07-18 | XR_ITS ---
EXAMINATION: XR FOOT, LEFT CLINICAL INFORMATION: Fibroblastic disorder, left foot pain. COMPARISON: None available. TECHNIQUE: AP, lateral, and oblique views of the left foot. FINDINGS: Small plantar calcaneal spur. Minimal degenerative changes with hypertrophic changes in the first metatarsophalangeal joint. Alignment preserved. No acute displaced fracture appreciated. XR/XR foot LT min 3V IMPRESSION: 1. Small plantar calcaneal spur. 2. Minimal degenerative changes with hypertrophic changes in the first metatarsophalangeal joint. 3. No acute displaced fracture appreciated. 4. Recommend follow-up imaging in 10-14 days if fracture is suspected. This study was presented today 07/18/2023 for interpretation. Stat results provided at this time as requested by referring provider.
== END 2023-07-18 11:39 | disposition home or self-care (01) ==
LOC: HO.HMGCX 11:38
PROVIDERS: PCP Internal Medicine; Visit Provider Internal Medicine
DX: M72.9 Fibroblastic disorder, unspecified (principal)
CPT/HCPCS: 73630

== ENCOUNTER 2023-11-12 08:27 | Outpatient (AMB) | payer OTHER, SELFPAY ==
[2023-11-12 08:34] VITALS: BP 134/85; PULSE 77; O2SAT 97; BMI 27.4
--- NOTE | 2023-11-12 08:34 | A.OFFPC_ITS ---
Vital Signs 11/12/23 08:34 Height 5 ft 2 in Weight 150 lb BMI 27.4 BP 134/85 Blood Pressure Location Lt brachial Position Sitting Pulse 77 Pulse Source Pulse Oximeter Pulse Oximetry (%) 97 Oxygen Delivery Method Room Air Intake Visit Reasons: PE Intake Note: Pt is here today for PE. Allergies latex Allergy (Verified 11/12/23 08:36) Rash Medication List - Last Reconciled 11/12/23 by Brittny Roach MD albuterol sulfate 90 mcg/actuation inhalation [id number]-[id number]-[id number]-euc 8 % apply to affected toenails topically QD; Tobacco use date assessed: 11/07/22 Dental Screening Dental Screen Date: 11/07/22 HPI PE HPI Details Pt presents for PE. 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 1. Little interest or pleasure in doing things: more than half the days 2. Feeling down, depressed, or hopeless: more than half the days 3. Trouble falling or staying asleep, or sleeping too much: more than half the days 4. Feeling tired or having little energy: more than half the days 5. Poor appetite or overeating: more than half the days 6. Feeling bad about yourself - or that you are a failure or have let yourself or your family down: nearly every day 7. Trouble concentrating on things, such as reading the newspaper or watching television: more than half the days 8. Moving or speaking so slowly that other people could have noticed. Or the opposite - being so fidgety or restless that you have been moving around a lot more than usual: not at all 9. Thoughts that you would be better off or of hurting yourself in some way: several days Total score: 16 Depression Screening Interpretation: Positive Depression Screening Follow-up: Existing condition and In treatment (fu with therapist and psychatrist, refused meds) Depression Screening Done: Yes Source: Developed by Drs. Bebo Matos, Aylin Andrade, Freddy Ovalle and colleagues, with an educational rex from [employer]. Thrive Questionnaire Date Thrive assessed: 11/12/23 I am a: Patient What is your living situation today?: I have a place to live, but I am worried about losing it in the future Within the past 12 months, did the food you bought not last and you didn't have the money to get more?: Never true Within the past 12 months, did you worry whether your food would run out before you got money to buy more?: Never true Do you have trouble paying for medicines?: No Do you have trouble getting transportation to medical appointments?: No Do you have trouble paying your heating and electricity bill?: I choose not to answer this question Do you have trouble taking care of your child, family member or friend?: I choose not to answer this question Do you have trouble with day-to-day activities such as bathing, preparing meals, shopping, managing finances, etc.?: No Are you currently unemployed and looking for a job?: No Are you interested in more education?: Yes Please select the resources that you would like help with: None Currently or been in a relationship where the following occur: No concerns reported THRIVE Score: 1 AUDIT C Alcohol Use Questionnaire (AUDIT-C) 1. How often do you have a drink containing alcohol?: Never 2. How many drinks containing alcohol do you have on a typical day when you are drinking?: 1 or 2 3. How often do you have six or more drinks on one occasion?: Never Total Score: 0 LILLIAM-7 AMB Questionnaire LILLIAM-7 Date LILLIAM - 7 assessed: 11/12/23 Feeling nervous, anxious, or on edge: 2 = More than half the days Not being able to stop or control worryin = Nearly every day Worrying too much about different things: 3 = Nearly every day Trouble relaxin = More than half the days Being so restless that it is hard to sit still: 1 = Several days Becoming easily annoyed or irritable: 1 = Several days Feeling afraid as if something awful might happen: 3 = Nearly every day Total LILLIAM-7 score (0-4 normal; 5-9 mild; 10-14 moderate; 15-21 severe): 15 Source: Developed by Drs. Bebo Matos, Aylin Andrade, Freddy Ovalle and colleagues, with an educational rex from [employer]. Review of Systems Const All systems reviewed & are unremarkable except as noted in HPI and below Reports no additional complaints Eyes Reports no additional complaints ENT Reports no additional complaints Card Reports no additional complaints Resp Reports no additional complaints GI Reports no additional complaints Reports no additional complaints Musc Reports no additional complaints Physical exam (Primary Care) Vital Signs: Last Vital Signs Pulse 77 11/12/23 08:34 BP 134/85 11/12/23 08:34 Pulse Ox 97 11/12/23 08:34 Oxygen Delivery Method Room Air 11/12/23 08:34 BMI result Body Mass Index 27.4 Tobacco/Smoking Status: Tobacco use Status Tobacco use date assessed 11/07/22 11/12/23 08:42 Patient Tobacco Use Status Former Tobacco user 11/12/23 08:42 Tobacco use type Cigarette 11/12/23 08:42 e-Cigarette/Vaping Use Never Used 11/12/23 08:42 PHQ-9: PHQ-9 Score PHQ-9: Total score 16 11/12/23 08:42 Depression Screening Interpretation: Positive Depression Screening Follow-up: Existing condition and In treatment (fu with therapist and psychatrist, refused meds) Thrive Assessment: Date of Thrive Assessment Date Thrive assessed 11/12/23 11/12/23 08:42 Currently or been in a relationship where the following occur: No concerns reported Const General: no acute distress HENMT Head: Yes normal to inspection Ears: hearing grossly normal bilaterally General nose exam: Normal external nose present Face and sinus: Yes normal facial exam Mouth: Normal oral and palatal mucosa present Eyes General: appearance normal, both eyes and all related structures Neck Neck: Yes no lymphadenopathy and Yes supple Resp Effort & Inspection: normal respiratory effort Auscultation: clear to auscultation bilaterally Cardio Rhythm: regular rhythm Heart sounds: S1 normal heart sound present and S2 normal heart sound present GI Inspection: Yes normal to inspection Palpation (GI): Soft to palpation Percussion: Yes normal to percussion Auscultation: normal bowel sounds Assessment and Plan Assessment & Plan (1) Hyperlipidemia: Code(s): E78.5 - Hyperlipidemia, unspecified Plan: Low-cholesterol diet increase exercise discussed with the patient. She will return for fasting blood work. Patient is interested in starting statin if her cholesterol is still elevated (2) Annual physical exam: Code(s): Z00.00 - Encounter for general adult medical examination without abnormal findings Plan: Well-balanced diet regular physical activity discussed with the patient she will have a mammogram in January and is up-to-date with the Pap smear by [facility] and colonoscopy (3) Normal pelvic exam: Comment: [facility] Dr. Jeter 02/19 Code(s): Z01.419 - Encounter for gynecological examination (general) (routine) without abnormal findings Orders: Orders Comprehensive Belva. Panel Fast Today E78.5 - Hyperlipidemia, unspecified, Z00.00 - Encounter for general adult medical examination without abnormal findings Complete Blood Count Auto Diff Today E78.5 - Hyperlipidemia, unspecified, Z00.00 - Encounter for general adult medical examination without abnormal findings Lipid Panel 1 Year E78.5 - Hyperlipidemia, unspecified, Z00.00 - Encounter for general adult medical examination without abnormal findings Comprehensive Belva. Panel Fast 1 Year E78.5 - Hyperlipidemia, unspecified, Z00.00 - Encounter for general adult medical examination without abnormal findings Complete Blood Count Auto Diff 1 Year E78.5 - Hyperlipidemia, unspecified, Z00.00 - Encounter for general adult medical examination without abnormal findings Vitamin D 25-OH Total 1 Year E78.5 - Hyperlipidemia, unspecified, Z00.00 - Enco unter for general adult medical examination without abnormal findings Lipid Panel Today E78.5 - Hyperlipidemia, unspecified, Z00.00 - Encounter for general adult medical examination without abnormal findings TSH reflex Free T4 Today E78.5 - Hyperlipidemia, unspecified, Z00.00 - Encounter for general adult medical examination without abnormal findings TSH reflex Free T4 1 Year E78.5 - Hyperlipidemia, unspecified, Z00.00 - Encounter for general adult medical examination without abnormal findings Coding Level of Care Code Est Pt Prev Care 40-64y(44928) Diagnoses Hyperlipidemia E78.5 Annual physical exam Z00.00 Normal pelvic exam Z01.419
== END 2023-11-12 09:42 | disposition home or self-care (01) ==
LOC: HO.HMGC 08:27
PROVIDERS: PCP Internal Medicine; Visit Provider Internal Medicine
DX: E78.5 Hyperlipidemia, unspecified (principal); Z00.00 Encounter for general adult medical examination without abnormal findings; Z01.419 Encounter for gynecological examination (general) (routine) without abnormal findings
CPT/HCPCS: 99396

== ENCOUNTER 2023-11-23 08:25 | Outpatient (REF) | payer OTHER, SELFPAY ==
[2023-11-23 10:27] LABS: MANUAL DIFF FLAG NO
[2023-11-23 10:39] LABS: Basophils Percent Auto 0.7 % (0-2); Eosinophils Absolute Auto 0.1 X10*3/uL (0.0-0.4); Eosinophils Percent Auto 2.8 % (0-4); Hematocrit 42.3 % (37.0-47.0); Hemoglobin 14.2 g/dl (12.0-16.0); Imm Gran Abs Auto 0.01 X10*3/uL (0.00-0.03); Imm Gran Pct Auto 0.2 % (0.0-0.4); Lymphocytes Absolute Auto 1.3 X10*3/uL (1.2-4.9); Lymphocytes Percent Auto 29.2 % (20-40); Mean Corpuscular HGB Conc 33.6 g/dl (31.0-35.0); Mean Corpuscular Volume 86.3 fL (80.0-98.0); Mean Platelet Volume 10.6 fL (9.4-12.3); Monocytes Absolute Auto 0.4 X10*3/uL (0.1-1.2); Monocytes Percent Auto 9.7 % (2-11); Neutrophils Absolute Auto 2.5 x10*3/uL (2.0-8.3); Neutrophils Percent Auto 57.4 % (45-73); Platelet Count 259 X10*3/uL (160-400); Red Cell Distribution Width 13.1 % (11.0-16.0); White Blood Count 4.3 X10*3/uL (4.8-10.8)
[2023-11-23 11:18] LABS: Alanine Aminotransferase 15 U/L (0-31); Alkaline Phosphatase 87 U/L (39-117); Anion Gap 13 (12-20); Aspartate Amino Transferase 22 U/L (5-31); Bilirubin Total 0.9 mg/dL (0.0-1.0); Blood Urea Nitrogen 17 mg/dL (9-16); Calcium 8.9 mg/dL (8.4-10.2); Carbon Dioxide 20 mmol/L (22-29); Chloride 112 mmol/L (96-108); Cholesterol 192 mg/dL (<200); Estimated Glomerular Filt Rate > 60; Glucose Fasting 104 mg/dL (60-99); HDL Cholesterol 61 mg/dL (>40); LDL Cholesterol Calculated 119 mg/dL (<100); Potassium 4.1 mmol/L (3.3-5.1); Sodium 141 mmol/L (135-145); TSH reflex Free T4 1.22 uIU/mL (0.32-4.0); Total Protein 6.9 g/dL (6.5-8.0); Triglycerides 60 mg/dL (<150); Vitamin D 25-OH Total 57.1 ng/mL (>30)
== END 2023-11-23 08:26 | disposition home or self-care (01) ==
LOC: HO.HMGCLDS 08:25
PROVIDERS: PCP Internal Medicine; Visit Provider Internal Medicine
DX: Z00.00 Encounter for general adult medical examination without abnormal findings (principal); E78.5 Hyperlipidemia, unspecified
CPT/HCPCS: 36415; 80053; 80061; 82306; 84443; 85025

== ENCOUNTER 2024-08-30 10:12 | Outpatient (REF) | payer OTHER, SELFPAY ==
--- OUTSIDE RECORDS SUMMARY | 2024-08-30 10:13 | XMS_ITS | Data Portability ---
Author Organization [place] - [facility] , [facility] Address [address] [place] [address] Assessment Encounter Date Assessment Date Assessment LastModified by Organization Details LastModified Time 06/10/2024 06/10/2024 Differential Diagnosis: Acute bacterial rhinosinusitis vs viral URI A: Acute viral rhinosinusitis suspected due to short duration of symptoms, and clinical exam. Diagnosis and treatment plan discussed with patient using shared decision making. Patient voices understanding and agrees with treatment plan. P: NSAID/Tylenol use for pain relief OTC advised. Guaifenesin ER 600mg Take 1 tablet po 2 times daily as needed for congestion. Tessalon Perles 200mg Take 1 cap po every 8 hours as needed for cough #15. Use Azelastine 137mcg 1-2 sprays in each nostril 2 times daily. Use saline nasal spray 2-3 times daily. Use Neti Pot as needed for sinus rinses. Follow up with [facility] or your doctor in 5 days if not better. Go to the ER immediately if you develop fever higher than 103, severe headache, neck stiffness or any worsening symptoms. [facility] Not available 06/10/2024 09:56:59 Plan of Treatment Reminders Order Date Submit Date Provider Last Modified By Organization Details Last Modified Time Details Appointments None recorded. Lab None recorded. Referral None recorded. Procedures None recorded. Surgeries None recorded. Imaging None recorded. Medication Orders guaifenesin ER 600 mg tablet, extended release 12 hr 2024 025 [id number], [address], [place], [phone], 09:58:51 azelastine 137 mcg (0.1 %) nasal spray 2024 025 [id number], [address], [place], [phone], 5 09:58:50 benzonatate 200 mg capsule 2024 025 [id number], [address], [place], [phone], 5 09:58:50 Patient TargetsNo targets recorded. Patient InstructionsNo instructions recorded. Reason for Referral None Reported. Problems Name Problem SNOMED Code Status Onset Date Resolution Date Notes Provider Name and Address Organization Details Recorded Time Asthma 893007662 Active 025 LAURI Mendoza [address] [place] [address] [address], [place], [address], [facility] 5 09:57:14 Problem Notes None recorded. Medical Equipment None Reported. Allergies No known drug allergies Medications Name Sig Start Date Stop Date Status Note LastModified by Organization Details LastModified Time benzonatate 200 mg capsule Take 1 capsule 3 times a day by oral route. 2024 active Not Available Not Available Not Avai lable azelastine 137 mcg (0.1 %) nasal spray Mayetta 2 sprays twice a day by intranasal route. 2024 active Not Available Not Available Not Avai lable guaifenesin ER 600 mg tablet, extended release 12 hr Take 1 tablet every 12 hours by oral route. 2024 active Not Available Not Available Not Avai lable albuterol sulf 90 mcg/actuatio n breath activated powder inhaler,sens or Inhale 2 puffs every 4 hours by inhalation route. active Not Available Not Available No t Available Vitals None Recorded Social History None recorded. Functional Status None recorded. Mental Status None recorded. Family History Nothing Reported. Medical History No medical history recorded. Gynecological HistoryNo gynecological history recorded. Obstetrics History GPAL:G 0 P 0 0 0 0 Past Encounters Encounter ID Performer Location Encounter Start Date Encounter Closed Date Diagnosis/Indication Diagnosis SNOMED-CT Code Diagnosis ICD10 Code Diagnosis Note [id number] Yanet [facility] , [address] [address] 06/10/2024 09:54:00 06/10/2024 15:59:51 Nasal congestion 43506738 R09.81 Health Concerns Section Related Observation LastModified by Organization Detai ls LastModified Time None Recorded Concern Status LastModified by Organization Details LastModified Time None Recorded Advance Directives Directive None Recorded Payers Encounter Date Sequence Insurance Name Policy Number Policy Paulino Covered Member ID Paulino Member ID Guarantor Name 06/10/2024 1 [facility] Marysol Clark i [id number] 0 Marysol Ureña-Jose archesi 06/10/2024 2 *SELF PAY* Marysol Clark i [id number] Marysol Ureña-Jose archesi Notes Date Note Type Note Provider Name and Address Organization Details Recorded Time 06/10/2024 text/html Call connected, patient greeted. Patient name, , telephone number and location verified verbally with the patient. Telemedicine limitations reviewed and verbal consent obtained to treat. Clinician attests they are physically located in the following state at the time of visit: [place]. CC: Cough and Nasal congestion History of Present Illness:Patient is a 59 yo female with symptoms for nasal congestion, throat pain, cough, and facial pressure. Patient reports has had symptoms for 4 days.No shortness of breath or difficulty breathing. Has been tolerating po.Patient exposed to sick contacts. Has tried Tylenol/Motrin, Mucinex, and Sudafed.Covid-Nega javier Barnett, [facility] [address] [facility] [address], [place], [address], [facility] 06/10/2024 09:59:55 OBGyn Episode No OBEpisode recorded.
== END 2024-08-30 10:13 | disposition home or self-care (01) ==
LOC: HO.MAMMO 10:12
PROVIDERS: PCP Internal Medicine; Visit Provider Internal Medicine
DX: Z12.31 Encounter for screening mammogram for malignant neoplasm of breast (principal)
CPT/HCPCS: 77063; 77067

== ENCOUNTER → 2024-08-30 10:45 | Outpatient (BNV) | payer OTHER, SELFPAY | PROVIDERS: PCP Internal Medicine; Visit Provider Internal Medicine | DX: Z12.31 Encounter for screening mammogram for malignant neoplasm of breast (principal) | CPT/HCPCS: 77063; 77067 ==

== ENCOUNTER 2024-10-04 10:22 | Outpatient (AMB) | payer OTHER, SELFPAY ==
[2024-10-04 11:36] VITALS: BP 110/84; PULSE 84; RESP 15; TEMP 36.8; O2SAT 99; BMI 27.8
--- NOTE | 2024-10-04 11:36 | AM.OFFWIN_ITS ---
Intake Vital Signs 10/04/24 11:36 Height 5 ft 2 in Weight 152 lb BMI 27.8 BP 110/84 Blood Pressure Location Rt brachial Position Sitting Respiration 15 Pulse 84 Pulse Source Pulse Oximeter Temp 98.3 F Temp Source Oral Pulse Oximetry (%) 99 Oxygen Delivery Method Room Air Intake Visit Reasons: EP-Abd pain, lt and lower midlle Intake Note: Pt is here today c/o lower abdominal pain and frequent urine x4days Patient Tobacco Use Status: Former Tobacco user Allergies latex Allergy (Verified 10/04/24 11:37) Rash HPI EP-Abd pain, lt and lower midlle HPI Details Patient is a 59-year-old female with history of ovarian cysts as well as diverticulitis, who comes to the walk-in clinic complaining of acute onset of left lower quadrant abdomen for the last few days. She reports that the pain starts from the left and radiates a bit to the center of the lower abdomen as well. She feels like symptoms are more consistent with her past history of diverticulitis, and not as much with her ovarian cysts. She denies nausea vomiting, fever or chills, myalgias or malaise, headache or dizziness, weakness, vaginal discharge, dysuria or other urinary symptoms, back pain, flank pain, or other significant associated symptoms. 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: 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 Are you a primary child care attendant school to a significant other at home: Yes (grandmother) Do you presently have visiting nurse or other home services: No Patient Tobacco Use Status: Former Tobacco user Tobacco use type: Cigarette e-Cigarette/Vaping Use: Never Used Current occupational status: employed Cognitive needs: No Hearing needs: No Vision needs: Yes Review of Systems Const All systems reviewed & are unremarkable except as noted in HPI and below Physical Exam Vital Signs: Last Vital Signs Temp 98.3 F 10/04/24 11:36 Pulse 84 10/04/24 11:36 Resp 15 10/04/24 11:36 BP 110/84 10/04/24 11:36 Pulse Ox 99 10/04/24 11:36 Oxygen Delivery Method Room Air 10/04/24 11:36 BMI result Body Mass Index 27.8 Const General: cooperative, healthy appearing, comfortable, no acute distress, alert, awake, Physically active and well groomed; No anxious, diaphoretic, ill appearing, intoxicated appearing, poor hygiene or tired appearing Nutritional Appearance: average body habitus Limitations: no limitations Resp Effort & Inspection: normal respiratory effort, able to speak in complete sentences, no audible wheezes, no cough, no grunting, not labored, no nasal flaring, no retractions and symmetric chest movement Auscultation: clear to auscultation bilaterally, no crackles, no rales, no rhonchi, no wheezes, lung sounds not diminished and No rub present Cardio Rate: regular rate GI Inspection: Yes normal to inspection, Yes Abdominal wall edema, Yes distended, Yes incision, Yes Abdominal panniculus present, Yes obesity, Yes scar, Yes v isible herniation and Yes visible peristalsis Palpation (GI): Soft to palpation, not firm, Tenderness to palpation present (GI) in the LLQ (No rebound tenderness) and obturator sign positive; not suprapubicly, psoas sign negative and with no rebound tenderness and No hepatosplenomegaly present General: Yes no CVA tenderness Back/Spine/Pelvis Back: no CVA tenderness Skin Other: Good color, warm and dry Psych Appearance: grossly normal Mental Status: mental status grossly normal Speech and movement: Normal speech and movement present Affect: normal affect Attitude: cooperative Thought process: Normal thought process present Insight: Good insight present (Psych) Judgement: Good judgement present (Psych) Results AMB Urinalysis, Automated UA Leukoctes 0 Javier/uL Last Edit by Renay Murrieta CMA on 10/04/24 11:50 UA Nitrite Negative Last Edit by Renay Murrieta CMA on 10/04/24 11:50 UA Urobilinogen 0.2 mg/dL Last Edit by Renay Murrieta CMA on 10/04/24 11:50 UA Protein 0 mg/dL Last Edit by Renay Murrieta CMA on 10/04/24 11:50 UA pH 6.0 Last Edit by Renay Murrieta, REMY on 10/04/24 11:50 UA Blood 0 Vladimir/uL Last Edit by Renay Murrieta, REMY on 10/04/24 11:50 UA Specific [place] 1.010 Last Edit by Renay Murrieta, REMY on 10/04/24 11:50 UA Ketone Negative Last Edit by Renay Murrieta, REMY on 10/04/24 11:50 UA Bilirubin 0 mg/dL Last Edit by Renay Murrieta, REMY on 10/04/24 11:50 UA Glucose 0 mg/dL Last Edit by Renay Murrieta CMA on 10/04/24 11:50 Results Reviewed Results Reviewed: Laboratory Last Values Urine pH (Auto) 6.0 10/04/24 11:41 Specific [place] (Auto) 1.010 10/04/24 11:41 Urine Protein (Auto) 0 mg/dL 10/04/24 11:41 Glucose (UA)(Auto) 0 mg/dL 10/04/24 11:41 Urine Ketones (Auto) Negative 10/04/24 11:41 Urine Blood (Auto) 0 Vladimir/uL 10/04/24 11:41 Urine Nitrite (Auto) Negative 10/04/24 11:41 Urine Bilirubin (Auto) 0 mg/dL 10/04/24 11:41 Urine Urobilinogen (Auto) 0.2 mg/dL 10/04/24 11:41 Leukocyte Esterase (Auto) 0 Javier/uL 10/04/24 11:41 Assessment & Plan Assessment & Plan (1) LLQ abdominal pain: Code(s): R10.32 - Left lower quadrant pain Plan: Patient has acute onset of LLQ abdominal pain, consistent with her past episodes of diverticulitis. She is aware of treatment plan to do a liquid diet and anti- inflammatory medication, and then progress as tolerated when symptoms are improving. However she has not started this yet, so we discussed it today. I told her that I can not order and CT scan from the walk-in, and that if her symptoms were to worsen, that she should go to the emergency department, as I can not guarantee that it is diff diverticulitis, however she currently is overall stable, in no apparent distress, nonsurgical abdomen, and urine dip was unremarkable. She agrees to start with this plan, and I wrote her a prescription for ibuprofen, which she should stop as soon as her symptoms are resolving, so as not to exacerbate anything. She will follow up with GI on Sunday. Orders: Orders AMB Urinalysis Automated 10/04/24 Z13.9 - Encounter for screening, unspecified Medications: New ibuprofen wean off and over to an over the counter dose when pain is resolving 600 mg PO Q8H PRN 30 tabs 0RF pain Coding Level of Care Code Est Pt Level 4 (41933) Diagnoses LLQ abdominal pain R10.32
== END 2024-10-04 12:48 | disposition home or self-care (01) ==
LOC: HO.HMCWIC 10:22
PROVIDERS: PCP Internal Medicine; Visit Provider Physician Assistant Medical
DX: R10.32 Left lower quadrant pain (principal)

== ENCOUNTER → 2024-10-04 10:22 | Outpatient (BNVA) | payer OTHER, SELFPAY | PROVIDERS: PCP Internal Medicine; Visit Provider Physician Assistant Medical | DX: R10.32 Left lower quadrant pain (principal) | CPT/HCPCS: 81003 ==

== ENCOUNTER 2025-02-06 13:37 | Outpatient (AMB) | payer OTHER, SELFPAY ==
--- NOTE | 2025-02-06 13:38 | A.OFFPC_ITS ---
Vital Signs 02/06/25 13:45 Height 5 ft 2 in Weight 156 lb BMI 28.5 BP 124/80 Blood Pressure Location Lt brachial Position Sitting Respiration 18 Pulse 84 Pulse Source Pulse Oximeter Temp 98.0 F Temp Source Oral Pulse Oximetry (%) 98 Oxygen Delivery Method Room Air Intake Visit Reasons: PE/overdue Intake Note: Pt is here today for PE. Allergies latex Allergy (Verified 02/06/25 13:51) Rash Medication List - Last Reconciled 02/06/25 by Brittny Roach MD albuterol sulfate 90 mcg/actuation (Ventolin HFA) 2 puffs inhalation Q6H PRN ibuprofen 600 mg PO Q8H PRN Tobacco use date assessed: 02/06/25 Dental Screening Dental Screen Date: 02/06/25 Did you have a dental visit in the last 12 months?: Yes Did you have a dental problem in the last 6 months where you did not have access to dental care?: No Was dental information given to patient?: Patient has dentist HPI PE/overdue HPI Details Pt presents for PE. 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 1. Little interest or pleasure in doing things: several days 2. Feeling down, depressed, or hopeless: several days 3. Trouble falling or staying asleep, or sleeping too much: not at all 4. Feeling tired or having little energy: nearly every day 5. Poor appetite or overeating: not at all 6. Feeling bad about yourself - or that you are a failure or have let yourself or your family down: several days 7. Trouble concentrating on things, such as reading the newspaper or watching television: not at all 8. Moving or speaking so slowly that other people could have noticed. Or the opposite - being so fidgety or restless that you have been moving around a lot more than usual: not at all 9. Thoughts that you would be better off or of hurting yourself in some w ay: not at all Total score: 6 Depression Screening Interpretation: Negative Depression Screening Done: Yes 47047 - PHQ-9 Billing: Yes Source: Developed by Drs. Bebo Matos, Aylin Andrade, Freddy Ovalle and colleagues, with an educational rex from [employer]. Thrive Questionnaire Date Thrive assessed: 02/06/25 I am a: Patient What is your living situation today?: I have a place to live, but I am worried about losing it in the future Within the past 12 months, did the food you bought not last and you didn't have the money to get more?: Sometimes True Within the past 12 months, did you worry whether your food would run out before you got money to buy more?: Often true Do you have trouble paying for medicines?: No Do you have trouble getting transportation to medical appointments?: No Do you have trouble paying your heating and electricity bill?: No Do you have trouble taking care of your child, family member or friend?: No Do you have trouble with day-to-day activities such as bathing, preparing meals, shopping, managing finances, etc.?: No Are you currently unemployed and looking for a job?: No Are you interested in more education?: Yes Please select the resources that you would like help with: Job search/training Currently or been in a relationship where the following occur: No concerns reported THRIVE Score: 3 AUDIT C Alcohol Use Questionnaire (AUDIT-C) 1. How often do you have a drink containing alcohol?: Never 3. How often do you have six or more drinks on one occasion?: Never Total Score: 0 LILLIAM-7 AMB Questionnaire LILLIAM-7 Date LILLIMA - 7 assessed: 02/06/25 Feeling nervous, anxious, or on edge: 1 = Several days Not being able to stop or control worryin = Several days Worrying too much about different things: 1 = Several days Trouble relaxin = Several days Being so restless that it is hard to sit still: 1 = Several days Becoming easily annoyed or irritable: 0 = Not at all Feeling afraid as if something awful might happen: 0 = Not at all Total LILLIAM-7 score (0-4 normal; 5-9 mild; 10-14 moderate; 15-21 severe): 5 Source: Developed by Drs. Bebo Matos, Aylin Andrade, Freddy Ovalle and colleagues, with an educational rex from [employer]. LILLIAM-7 Assessment Billing LILLIAM-7 Assessment Tool: LILLIAM-7 Assessment 87474 Review of Systems Const All systems reviewed & are unremarkable except as noted in HPI and below Eyes Reports no additional complaints ENT Reports no additional complaints Card Reports no additional complaints Resp Reports no additional complaints GI Reports no additional complaints Reports no additional complaints Musc Reports no additional complaints Physical exam (Primary Care) Vital Signs: Last Vital Signs Temp 98.0 F 02/06/25 13:45 Pulse 84 02/06/25 13:45 Resp 18 02/06/25 13:45 BP 124/80 02/06/25 13:45 Pulse Ox 98 02/06/25 13:45 Oxygen Delivery Method Room Air 02/06/25 13:45 BMI result Body Mass Index 28.5 Tobacco/Smoking Status: Tobacco use Status Tobacco use date assessed 02/06/25 02/06/25 13:54 Patient Tobacco Use Status Former Tobacco user 02/06/25 13:38 Tobacco use type Cigarette 02/06/25 13:38 e-Cigarette/Vaping Use Never Used 02/06/25 13:38 PHQ-9: PHQ-9 Score PHQ-9: Total score 6 02/06/25 13:54 Depression Screening Interpretation: Negative Thrive Assessment: Date of Thrive Assessment Date Thrive assessed 02/06/25 02/06/25 13:54 Currently or been in a relationship where the following occur: No concerns reported Const General: no acute distress HENMT Head: Yes normal to inspection Ears: hearing grossly normal bilaterally Mouth: Normal oral and palatal mucosa present Eyes General: appearance normal, both eyes and all related structures Neck Neck: Yes no lymphadenopathy and Yes supple Resp Effort & Inspection: normal respiratory effort Auscultation: clear to auscultation bilaterally Cardio Rhythm: regular rhythm Heart sounds: S1 normal heart sound present and S2 normal heart sound present GI Inspection: Yes normal to inspection Palpation (GI): Soft to palpation Percussion: Yes normal to percussion Auscultation: normal bowel sounds Extrem General: Yes no clubbing, cyanosis or edema Coding Level of Care Code Est Pt Prev Care 40-64y(48906) Diagnoses Annual physical exam Z00.00 Additional Codes LILLIAM-7 Assessment Billing - LILLIAM-7 Assessment Tool: LILLIAM-7 Assessment 39602 ([id number]) PHQ-9 - 60267 - PHQ-9 Billing: Yes ([id number]) Assessment & Plan Assessment & Plan (1) Annual physical exam: Code(s): Z00.00 - Encounter for general adult medical examination without abnormal findings Category: Medical Plan: Well-balanced diet regular physical activity discussed with the patient. She is up-to-date with the mammogram Pap smear and colonoscopy. Patient will return for fasting blood work Orders: Orders Lipid Panel Today E78.5 - Hyperlipidemia, unspecified, Z00.00 - Encounter for general adult medical examination without abnormal findings, Z01.419 - Encounter for gynecological examination (general) (routine) without abnormal findings, Z92.89 - Personal history of other medical treatment Complete Blood Count Auto Diff Today E78.5 - Hyperlipidemia, unspecified, Z00.00 - Encounter for general adult medical examination without abnormal findings, Z01.419 - Encounter for gynecological examination (general) (routine) without abnormal findings, Z92.89 - Personal history of other medical treatment UA w Microscopic Today E78.5 - Hyperlipidemia, unspecified, Z00.00 - Encounter for general adult medical examination without abnormal findings, Z01.419 - Encounter for gynecological examination (general) (routine) without abnormal findings, Z92.89 - Personal history of other medical treatment Comprehensive [place]. Panel Fast Today E78.5 - Hyperlipidemia, unspecified, Z00.00 - Encounter for general adult medical examination without abnormal findings, Z01.419 - Encounter for gynecological examination (general) (routine) without abnormal findings, Z92.89 - Personal history of other medical treatment TSH reflex Free T4 Today E78.5 - Hyperlipidemia, unspecified, Z00.00 - Encounter for general adult medical examination without abnormal findings, Z01.419 - Encounter for gynecological examination (general) (routine) without abnormal findings, Z92.89 - Personal history of other medical treatment
[2025-02-06 13:45] VITALS: BP 124/80; PULSE 84; RESP 18; TEMP 36.7; O2SAT 98; BMI 28.5
== END 2025-02-06 14:52 | disposition home or self-care (01) ==
LOC: HO.HMCC 13:38
PROVIDERS: PCP Internal Medicine; Visit Provider Internal Medicine
DX: Z00.00 Encounter for general adult medical examination without abnormal findings (principal)

== ENCOUNTER → 2025-02-06 13:37 | Outpatient (BNVA) | payer OTHER, SELFPAY | PROVIDERS: PCP Internal Medicine; Visit Provider Internal Medicine | DX: Z00.00 Encounter for general adult medical examination without abnormal findings (principal); Z13.31 Encounter for screening for depression; Z13.39 Encounter for screening examination for other mental health and behavioral disorders | CPT/HCPCS: 96127 ==

== ENCOUNTER 2025-02-14 07:30 | Outpatient (REF) | payer OTHER, SELFPAY ==
[2025-02-14 11:26] LABS: MANUAL DIFF FLAG NO
[2025-02-14 11:37] LABS: Hematocrit 42.3 % (37.0-47.0); Hemoglobin 13.8 g/dl (12.0-16.0); Imm Gran Abs Auto 0.00 X10*3/uL (0.00-0.03); Imm Gran Pct Auto 0.0 % (0.0-0.4); Lymphocytes Absolute Auto 0.8 X10*3/uL (1.2-4.9); Mean Corpuscular HGB Conc 32.6 g/dl (31.0-35.0); Mean Corpuscular Hemoglobin 28.2 pg (27.0-33.0); Mean Corpuscular Volume 86.5 fL (80.0-98.0); NRBC Abs Auto 0.000 X10*3/uL (0.0-0.012); NRBC Pct Auto 0.0 /100WBC (0.0-0.2); Platelet Count 255 X10*3/uL (160-400); Red Blood Count 4.89 X10*6/uL (4.20-5.50); White Blood Count 3.3 X10*3/uL (4.8-10.8)
[2025-02-14 11:52] LABS: Appearance Urine Turbid; Glucose Urine UA Negative (Negative); PH 6.0 (5.0-9.0); Specific Gravity - Urine 1.025 (1.005-1.025); UMIC TRIGGER UA YES
[2025-02-14 11:59] LABS: Alanine Aminotransferase 17 U/L (0-31); Albumin Level 4.4 g/dL (3.5-5.0); Alkaline Phosphatase 97 U/L (39-117); Anion Gap 13 (12-20); Aspartate Amino Transferase 23 U/L (5-31); Blood Urea Nitrogen 16 mg/dL (9-16); Calcium 9.0 mg/dL (8.4-10.2); Carbon Dioxide 23 mmol/L (22-29); Chloride 109 mmol/L (96-108); Cholesterol 220 mg/dL (<200); Estimated Glomerular Filt Rate > 60; HDL Cholesterol 54 mg/dL (>40); Potassium 4.0 mmol/L (3.3-5.1); Sodium 141 mmol/L (135-145); Total Protein 7.1 g/dL (6.5-8.0); Triglycerides 104 mg/dL (<150)
== END 2025-02-14 07:31 | disposition home or self-care (01) ==
LOC: HO.HMGCLDS 07:30
PROVIDERS: PCP Internal Medicine; Visit Provider Internal Medicine
DX: Z00.00 Encounter for general adult medical examination without abnormal findings (principal); Z01.419 Encounter for gynecological examination (general) (routine) without abnormal findings; E78.5 Hyperlipidemia, unspecified; Z92.89 Personal history of other medical treatment
CPT/HCPCS: 36415; 80053; 80061; 81001; 84443; 85025